=== PATIENT | male | born 1945 | race Caucasian/White ===

== ENCOUNTER 2019-02-19 10:57 | Inpatient (IN) | payer MEDICARE ==
[~2019-02-19] VITALS: Ht 182.9 cm; Wt 90.7 kg
[2019-02-19 11:00] VITALS: BP 124/58
[2019-02-19 11:10] LABS: ABSOLUTE LYMPHOCYTES 1.8 thou/uL (0.8-5.3); ABSOLUTE MONOCYTES 1.9 thou/uL (0.0-1.2); ABSOLUTE NEUTROPHILS 10.6 thou/uL (1.6-8.1); BASOPHILS 0.2 %; EOSINOPHILS 0.3 %; HEMATOCRIT 40.5 % (42.0-52.0); HEMOGLOBIN 13.5 gm/dL (14.0-18.0); LYMPHOCYTES 12.2 %; MCH 32.1 pg (26.0-34.0); MCHC 33.4 g/dL (28.0-37.0); MCV 96.1 fL (80.0-100.0); MONOCYTES 13.3 %; MPV 8.6 fl. (7.2-11.1); NUCLEATED RBCS 0 /100WBC; PLATELET COUNT* 245 thou/uL (150-400); RBC 4.21 mil/uL (4.50-6.00); RDW-CV 13.8 % (10.5-14.5); WBC 14.4 thou/uL (4.0-11.0)
[2019-02-19 11:15] LABS: ANION GAP 8 mmol/L (7-16); BUN 25 mg/dL (7-18); CALCIUM 8.5 mg/dL (8.5-10.1); CHLORIDE 97 mmol/L (98-107); CO2 26 mmol/L (21-32); CREATININE 2.1 mg/dL (0.6-1.3); GLUCOSE 153 mg/dL (70-99); POTASSIUM 4.7 mmol/L (3.5-5.1); SODIUM 131 mmol/L (136-145)
[2019-02-19] MEDS ORDERED: BP MEDICATION (11:18)
[2019-02-19] MEDS ORDERED: METFORMIN HCL500 MG PO (11:18)
[2019-02-19] MEDS ORDERED: LEVEMIR SUBQ (11:18)
[2019-02-19] MEDS ORDERED: LIPITOR 40 MG T40 M1 PO (11:18)
[2019-02-19 11:21] LABS: APTT 29.6 Seconds (25.0-31.3); INR 1.1; PROTIME 10.8 Seconds (9.20-11.50)
[2019-02-19 11:31] LABS: ALBUMIN 3.1 g/dL (3.4-5.0); ALKALINE PHOSPHATASE 77 U/L (46-116); CK-MB MASS 0.7 ng/mL (<0.5-3.6); NT-PRO BRAIN NAT PEPTIDE 445 pg/mL (<300); SGOT 9 U/L (15-37); SGPT 18 U/L (30-65); TOTAL BILIRUBIN 0.8 mg/dL (<0.1-1.0); TOTAL PROTEIN 7.2 g/dL (6.4-8.2); TROPONIN-I LEVEL <0.06 ng/mL (<0.06)
[2019-02-19 13:32] LABS: URINE BILIRUBIN NEGATIVE (Negative); URINE BLOOD NEGATIVE (Negative); URINE CLARITY CLEAR; URINE COLOR YELLOW; URINE GLUCOSE-RANDOM 1+ (Negative); URINE KETONES NEGATIVE (Negative); URINE LEUKOCYTES-REFLEX NEGATIVE (Negative); URINE NITRITE-REFLEX NEGATIVE (Negative); URINE PROTEIN 1+ (Negative); URINE SPECIFIC GRAVITY 1.025 (1.005-1.030); URINE UROBILINOGEN 0.2 E.U./dl (0.2-1.0)
[2019-02-19 16:21] VITALS: BP 119/63
[2019-02-19] MEDS ORDERED: VITAMIN B122500 MCG PO (18:47)
[2019-02-19] MEDS ORDERED: VITAMIN C250 MG PO (18:47)
[2019-02-19] MEDS ORDERED: PROBIOTIC1 EAC1 PO (18:48)
[2019-02-19] MEDS ORDERED: OMEGA 3 1,0001 EACH PO (18:48)
[2019-02-19 20:00] VITALS: BP 121/98
[2019-02-20] VITALS: BP 104/57
[2019-02-20 04:00] VITALS: BP 108/61
[2019-02-20 04:54] LABS: HEMATOCRIT 35.7 % (42.0-52.0); HEMOGLOBIN 11.7 gm/dL (14.0-18.0); MCHC 32.9 g/dL (28.0-37.0); MCV 97.4 fL (80.0-100.0); MPV 8.6 fl. (7.2-11.1); RBC 3.66 mil/uL (4.50-6.00); RDW-CV 13.9 % (10.5-14.5); WBC 10.4 thou/uL (4.0-11.0)
[2019-02-20 05:26] LABS: ALBUMIN 2.3 g/dL (3.4-5.0); CALCIUM 7.8 mg/dL (8.5-10.1); CREATININE 1.8 mg/dL (0.6-1.3); MAGNESIUM 1.7 mg/dL (1.8-2.4); POTASSIUM 5.4 mmol/L (3.5-5.1); TOTAL BILIRUBIN 0.5 mg/dL (<0.1-1.0); TOTAL PROTEIN 5.8 g/dL (6.4-8.2)
--- NOTE | 2019-02-20 05:36 | NUR ---
ASSUMED CARE OF PT AFTER REPORT AT 1930. PT A&OX4. FORGETFUL AT TIMES. VSS. PHYSICAL ASSESSMENT COMPLETED AND CHARTED. PT ON RA. PT TRACING SR/VPACED ON TELE. PT UPSTANDBY TO RESTROOM. DENIES ANY PAIN OR DISCOMFORT. INSTRUCTED ON NPO POST MIDNIGHT ORDERED. COMMUNICATES UNDERSTANDING. PT ABLE TO SLEEP WELL ON BED. CALL LIGHT WITHIN REACH.
--- NOTE | 2019-02-20 07:38 | EKG ---
[place] [address] ELECTROCARDIOGRAM REPORT Name: MATT HA Room: [address] ADM IN .R.#: [id number] Admission: 02/19/19 Attend Phys: Malissa Lehman MD Discharge: Date of : 47 Report #: [id number] THIS REPORT FOR: //name// [facility] ED Test Date: 2019-02-19 Test Time: 11:17:48 Pat Name: MATT HA Department: Room: [facility] Gender: M Supervisor [employer]: : 1945 Requested By: Hany Carlson Order Number: [id number] MD: Jovon Arora Measurements Intervals [place] Rate: 60 P: 31 MA: 141 QRS: 56 QRSD: 90 T: 45 QT: 412 QTc: 412 Interpretive Statements Sinus rhythm No previous ECG available for comparison Electronically Signed On 02-20-2019 7:38:35 CDT by Jovon Arora [email or web address] <ELECTRONICALLY SIGNED> By: Jovon Arora MD, [facility] 02/20/19 0738 [id number] Jovon Arora MD, FACC /EPI
[2019-02-20 08:00] VITALS: BP 123/61
[2019-02-20 16:00] VITALS: BP 149/66
--- NOTE | 2019-02-20 18:18 | NUR ---
KAMALJITNET RESTING IN BED. VITAL SIGNS STABLE. TELEMETRY STOPPED REGINA IS NOW MED SURG. CYSTOSCOPY PERFORMEED TODAY WITH LAZER REMOVAL OF STONES AND PLACEMENT OF URETER STENT. PAITNET NOW VOIDING YELOOW/RED CLEAR URINE. VOIDING WITHOUT DIFFICULTY. NO RESIDUAL NOTED ON LAST 2 VOIDS. PATIENT UP AD BEATRIZ WITH STEADY GAIT. EXPECTED DISCHARGE TOMORROW TO SELF CAR AT HOME. HOURLY ROUNDING COMPLETED FOR REGINA SAFETY.
--- NOTE | 2019-02-20 18:58 | NUR ---
PATIENT TRANSFERRED FROM [facility] TO ROOM 105. NO COMPLAINTS AT THIS TIME. LOTS OF FAMILY AT BEDSIDE. IVF INFUSING. CALL LIGHT WITHIN REACH, WILL CONTINUE TO MONITOR.
[2019-02-20 20:00] VITALS: BP 148/58
[2019-02-21 04:19] LABS: HEMATOCRIT 35.2 % (42.0-52.0); HEMOGLOBIN 11.5 gm/dL (14.0-18.0); MCH 31.8 pg (26.0-34.0); MCHC 32.8 g/dL (28.0-37.0); RBC 3.63 mil/uL (4.50-6.00); RDW-CV 13.8 % (10.5-14.5); WBC 9.4 thou/uL (4.0-11.0)
[2019-02-21 04:35] LABS: CREATININE 1.7 mg/dL (0.6-1.3); POTASSIUM 5.3 mmol/L (3.5-5.1)
--- NOTE | 2019-02-21 05:09 | NUR ---
PATIENT SLEPT WELL DURING THIS SHIFT. PT UP TO BATHROOM WITH STEADY GAIT. PT WITH FLUIDS INFUSING PER DR ORDER. PT WITH 2100 BLOOD SUGAR OF 248; HUMALOG 4 UNITS GIVEN. PT DENIES PAIN/NAUSEA. FREQUENTLY USED ITEMS AND CALL LIGHT WITHIN REACH. SIDERAILS UPX2. WILL CONTINUE TO MONITOR.
[2019-02-21 07:54] VITALS: BP 148/65
[2019-02-21 10:25] LABS: CALCIUM 8.1 mg/dL (8.5-10.1); CREATININE 1.6 mg/dL (0.6-1.3); POTASSIUM 4.4 mmol/L (3.5-5.1)
--- NOTE | 2019-02-21 14:32 | NUR ---
PT.RESTING IN BED. AT BEDSIDE. HE SAID HE IS INDEPENDENT AT HOME. DOES NOT USE ANY DME. HE SHARES CHORES WITHHIS . HE DOES NOT FEEL HE WILL HAVE ANY DISCHARGE NEEDS. CM TO BE AVAILABLE IF NEEDED.
[2019-02-21 16:00] VITALS: BP 138/80
--- NOTE | 2019-02-21 17:52 | NUR ---
PT A&Ox4. VITALS STABLE. IV PATENT, INFUSING. UP AD BEATRIZ. BM TODAY. IN ROOM. DENIED PAIN. CALL LIGHT WITHIN REACH. WILL CONTINUE TO MONITOR.
[2019-02-21 22:00] VITALS: BP 152/67
--- NOTE | 2019-02-22 06:29 | NUR ---
PATIENT HAS SLEPT WELL THROUGHOUT THE NIGHT. VSS ON RA. NO C/O PAIN. PATIENT STATES THAT HE IS URINATING WITHOUT ANY ISSUES. ABDOMEN APPEARS FIRM AND DISTENDED. BOWEL SOUNDS ARE HYPOACTIVE. IV IN RIGHT FOREARM-NS @ 100ML/HR. PATIENT INSTRUCTED TO USE CALL LIGHT WHEN NEEDING ASSISTANCE. HOURLY ROUNDS MADE. WILL CONTINUE WITH PLAN OF CARE AND NURSING TO MONITOR.
[2019-02-22] MEDS ORDERED: ASPIR 8181 MG PO (10:00)
[2019-02-22] MEDS ORDERED: SERTRALINE HCL50 MG PO (10:01)
[2019-02-22] MEDS ORDERED: PIOGLITAZONE15 MG PO (10:01)
--- NOTE | 2019-02-22 10:40 | NUR ---
PATIENT TRANSFERED TO TELEMETRY UNIT. REPORT CHOLO TO JANICE. BELONGINGS PACKED TO TRANSPORTED BY FAMILY.
[2019-02-22 11:00] VITALS: BP 157/73
[2019-02-22 11:40] LABS: CALCIUM 8.1 mg/dL (8.5-10.1); CREATININE 1.3 mg/dL (0.6-1.3); POTASSIUM 4.6 mmol/L (3.5-5.1)
--- NOTE | 2019-02-22 12:11 | NUR ---
RECIEVED PATIENT LATE IN THE AM AT 1100. PATIENT SOMEWHAT CONFUSED ON ARRIVAL. ORIENTED TO PERSON. REORIENED TO PLACE TIME AND SITUATION. SOME WORD SALAD NOTED. ALSO ASSESSED RIGHT SIDE FACIAL DROOP AND RIGHT LEG DRIFT. DR PIERRE PAGED AND TEXTED. NO RETURN OF CALL AT THIS TIME. PATIENT PLACED ON TELE MONITOR. TELE SHOWS SR. IS IN AT THE BEDSIDE. WILL CONTINUE TO MONITOR NEURO CHANGES. NO C/O PAIN.
[2019-02-22 16:00] VITALS: BP 106/70
[2019-02-22 20:00] VITALS: BP 166/74
[2019-02-23] VITALS: BP 137/67
[2019-02-23 04:00] VITALS: BP 151/77
[2019-02-23 04:38] LABS: HEMATOCRIT 32.3 % (42.0-52.0); HEMOGLOBIN 10.7 gm/dL (14.0-18.0); MCH 32.2 pg (26.0-34.0); MCHC 33.3 g/dL (28.0-37.0); MCV 96.6 fL (80.0-100.0); MPV 9.2 fl. (7.2-11.1); RBC 3.34 mil/uL (4.50-6.00); RDW-CV 13.7 % (10.5-14.5); WBC 9.4 thou/uL (4.0-11.0)
[2019-02-23 05:00] LABS: CALCIUM 8.2 mg/dL (8.5-10.1); CREATININE 1.2 mg/dL (0.6-1.3); POTASSIUM 4.5 mmol/L (3.5-5.1)
--- NOTE | 2019-02-23 05:01 | NUR ---
ASSUMED PT CARE AT APPROX 1930. PT IS AWAKE AND ORIENTED X4. VSS ON ROOM AIR. NO DESATURATIONS NOTED. ASSESSMENT DONE AND CHARTED. DANCING MASTER IN PLACE, TRACING SR, PACER IS PACING NEEDED. PT DENIES PAIN OF THE MOMENT. ABDOMINAL IS SOFTER BUT STILL A LITTLE DISTENDED, ACTIVE BOWEL SOUNDS NOTED. PT DENIES NAUSEA/VOMITING. PT IS ABLE TO SLEEP MOST OF THE NIGHT. CALL LIGHT WITHIN REACH. HOURLY ROUNDING DONE FOR PT SAFETY. FALL PRECAUTIONS IN PLACE.
--- NOTE | 2019-02-23 07:15 | NUR ---
CHNAGE OF SHIFT BEDSIDE REPORT GIVEN PATIENT SEEN AT BEDSIDE, IN BED WATCHING TV ASSUMED PATIENT CARE
[2019-02-23 08:00] VITALS: BP 108/72
--- NOTE | 2019-02-23 11:24 | NUR ---
Spoke with , anticipate that Pt will be medically stable to dc to home tomorrow, no needs anticipated.
--- NOTE | 2019-02-23 11:56 | OP ---
[address] [address] OPERATIVE REPORT Name: MATT HA Room: [address] IN M.R.#: [id number] Admission: 02/19/19 Attend Phys: Malissa Lehman MD Discharge: Date of : 47 Report #: [id number] THIS REPORT FOR: //name// CC: Malissa Black DATE OF SERVICE: 02/20/2019 PREOPERATIVE DIAGNOSIS: Left proximal ureteral calculus. POSTOPERATIVE DIAGNOSIS: Left proximal ureteral calculus. PROCEDURES PERFORMED: 1. Cystoscopy with left retrograde pyelogram. 2. Left ureteroscopy with laser lithotripsy. 3. Basket stone extraction. 4. Left 4.8 x 28 double-J ureteral stent placement. SURGEON: Margarito Dunn MD ANESTHESIA: General endotracheal. BRIEF HISTORY: The patient is a 73-year-old male who presented to [facility] Emergency Room with left-sided flank pain. CT imaging demonstrated the presence of a 6 mm left proximal ureteral calculus with associated hydronephrosis. After discussion of available management options, the patient elected to proceed with cystoscopy, left retrograde pyelogram, left ureteroscopy with laser lithotripsy, stone retrieval, and stent placement. The risks of the procedure including the risks of bleeding, infection, damage to surrounding structures, need for additional procedures, and anesthetic risks were discussed with the patient and he wished to proceed. PROCEDURE IN DETAIL: The risks and benefits of surgery were discussed with the patient and he wished to proceed. Informed consent was obtained and the patient was transferred to the operating room where he was laid supine on the operating room table. After the induction of adequate general endotracheal anesthesia, his legs were placed in a modified dorsal lithotomy position, taking care to pad all pressure points and avoid any hyperextension or hyperflexion of his joints. The patient had previously received empiric antibiotics. His genitalia were then prepped and draped in the usual sterile fashion. A timeout was then performed to ensure correct patient and procedure. At this time, a 22-[place] cystoscope sheath with a 30-degree lens was lubricated and advanced under direct vision and irrigation into the anterior urethra. There were no anterior urethral abnormalities identified. As the prostatic urethra was approached, there was noted to be moderate lateral lobe enlargement without significant visual obstruction. There was mild median lobe enlargement. [place] [address] OPERATIVE REPORT Name: MATT HA Room: [address]#: [id number] Admission: 02/19/19 Attend Phys: Malissa Lehman MD Discharge: Date of : 47 Report #: [id number] advanced into the bladder where it was disarticulated and the bladder was drained. Cystoscopy was performed under direct vision and irrigation with both 30-degree and 70 degree lens. The patient's bladder wall was mildly trabeculated, but there were no papillary tumors or suspicious mucosal lesions identified. At this time, a 5-[place] Pollack catheter was placed into the patient's left ureteral orifice and a left retrograde pyelogram was performed. Contrast could be seen filling the distal, mid, and proximal left ureter up to a radiopaque filling defect consistent with the stone previously observed on CT imaging. Contrast did progress beyond the stone and filled a mildly dilated left collecting system. At this time, a 0.038 ZIPwire was advanced into the left ureter and up into the kidney under fluoroscopic guidance. The wire was clamped to the drape as a safety wire. A second ZIPwire was advanced alongside the first under fluoroscopic guidance until it was also seen to coil within the left collecting system under fluoroscopy. At this time, the inner cannula of an 05/03 navigator access sheath was obtained and was advanced by itself over the working wire under fluoroscopic guidance. There was resistance met at the ureteral orifice with attempts at advancing just the inner cannula alone. As such that was removed. A flexible ureteroscope was then advanced over the wire under direct and fluoroscopic vision into the ureter. The ureteroscope was able to be advanced to the patient's calculus. The stone moved in a retrograde fashion into the kidney where it settled in a mid pole sharon. The ureteroscope was advanced to the stone. There was a fair amount of debris within the left kidney, which did limit visibility somewhat. A 200 micron laser fiber was advanced through the ureteroscope and laser lithotripsy was performed on the stone. The majority of the stone was able to be dusted nicely. Eventually, a few larger fragments were generated. These were further broken down with laser lithotripsy until small enough for passage alongside the stent. There were two remaining fragments, which were 2 mm or so. One was grasped with a 0 tip nitinol basket and removed. The working wire was replaced with a 10-[place] dual-lumen catheter under fluoroscopic guidance. The ureteroscope was readvanced to the kidney and the second of the two larger fragments was grasped and removed with a 0 tip nitinol basket as well. The working wire was replaced with a dual-lumen catheter, and the ureteroscope was readvanced to the kidney. Renoscopy was performed one final time. There was dust and tiny fragments remaining, all amenable to passage alongside a ureteral stent. As such, the ureteroscope was withdrawn from the UPJ towards the UVJ. Prior to withdrawing the ureteroscope entirely, a left retrograde pyelogram was performed by injecting the contrast through the scope. This demonstrated patency and integrity of the ureter and collecting system and delineated the collecting system for stent placement. There were no stone fragments within the ureter. The ureteroscope was removed. A 4.8 x 28 double-J ureteral stent was then advanced over the safety wire and into position using a metal-tipped pusher. The wire was withdrawn, deploying the stent. A good coil of the stent was identified within the patient's left upper pole sharon under fluoroscopy and a good coil of the stent was identified within the bladder under direct vision with the cystoscope. The cystoscope was disarticulated [place] [address] OPERATIVE REPORT Name: MATT HA Room: [address]#: [id number] Admission: 02/19/19 Attend Phys: Malissa Lehman MD Discharge: Date of : 47 Report #: [id number] drained. The cystoscope was removed, and the patient's urethra was anesthetized with 2% lidocaine jelly. A B and O suppository was placed per rectum. The patient was returned to a supine position, awakened from anesthesia, and transferred to the postoperative care unit in stable condition. The patient tolerated the procedure well. COMPLICATIONS: None. ESTIMATED BLOOD LOSS: None. IV FLUIDS: Crystalloid. DRAINS: Left 4.8 x 28 double-J ureteral stent. SPECIMENS: 1. Urine for culture and sensitivity. 2. Left renal calculus fragments. FINDINGS: 1. Normal anterior urethra. 2. Moderate bilobar prostatic hyperplasia without significant visual obstruction. 3. Mild bladder wall trabeculations without additional gross bladder wall pathology. No papillary bladder tumors or suspicious mucosal lesions identified. 4. Left retrograde pyelogram demonstrating a radiopaque filling defect of the left proximal ureter consistent with the stone seen on prior CT imaging. 5. Left ureteroscopy demonstrating a left proximal ureteral calculus, fragmented with laser lithotripsy. 6. Left 4.8 x 28 double-J ureteral stent in good position by fluoroscopy and direct vision at the conclusion of the procedure. <ELECTRONICALLY SIGNED> By: Margarito Dunn MD 02/23/19 1156 [id number] Dunn MD /nt
[2019-02-23 20:30] VITALS: BP 141/68
--- NOTE | 2019-02-23 22:43 | NUR ---
ASSUMED PT CARE AT THIS TIME, ASSESSMENT CHARTED BY PREVIOUS RN. PT RESTING IN BED WITH STABLE VITALS.
[2019-02-24] VITALS: BP 146/66
[2019-02-24 04:00] VITALS: BP 156/71
[2019-02-24 05:12] LABS: HEMATOCRIT 33.3 % (42.0-52.0); HEMOGLOBIN 11.2 gm/dL (14.0-18.0); MCH 32.1 pg (26.0-34.0); MCHC 33.6 g/dL (28.0-37.0); MCV 95.5 fL (80.0-100.0); MPV 9.2 fl. (7.2-11.1); RBC 3.48 mil/uL (4.50-6.00); RDW-CV 13.4 % (10.5-14.5); WBC 9.2 thou/uL (4.0-11.0)
[2019-02-24 05:35] LABS: ALBUMIN 2.3 g/dL (3.4-5.0); CALCIUM 8.4 mg/dL (8.5-10.1); CREATININE 1.3 mg/dL (0.6-1.3); MAGNESIUM 1.3 mg/dL (1.8-2.4); POTASSIUM 4.3 mmol/L (3.5-5.1); TOTAL BILIRUBIN 0.4 mg/dL (<0.1-1.0)
[2019-02-24 08:00] VITALS: BP 146/82
[2019-02-24] MEDS ORDERED: CIPRO500 MG PO (09:57)
--- NOTE | 2019-02-24 09:57 | NUR ---
ASSUMED CARE OF PATIENT THIS AM AT 0730. PATIENT IS ALERT AND ORIENTED X 4. HE DENIES PAIN AND DISCOMFORT. TELE SHOWS SR TO SB. HE IS TAKING HIS DIET WELL. DR IN TO ROUND AND DISCHARGE ORDERS WRITTEN. PATIENT TO RECIEVE AN ADDITIONAL DOSE OF PO MAGNESIUM AND DISCHARGE TO HOME.
[2019-02-24 12:21] VITALS: BP 146/82
[2019-02-24 12:24] VITALS: BP 146/82
== END 2019-02-24 14:20 | disposition home or self-care (01) | DRG 853 ==
LOC: M.ERS 10:57 → M.ORTHSURG 13:26 → M.TBA-ER 13:26 → M.2W 13:26 → M.ORTHSURG 02-20 18:57 → M.2W 02-22 11:02
PROVIDERS: Family Medicine; Nurse Practitioner Adult Health; Urology; ADMIT Internal Medicine
PROC: 0TC78ZZ Extirpation of Matter from Left Ureter, Via Natural or Artificial Opening Endoscopic (ICD-10-PCS; principal; 2019-02-20)
PROC: BT1F1ZZ Fluoroscopy of Left Kidney, Ureter and Bladder using Low Osmolar Contrast (ICD-10-PCS; principal; 2019-02-20)
PROC: 0T778DZ Dilation of Left Ureter with Intraluminal Device, Via Natural or Artificial Opening Endoscopic (ICD-10-PCS; principal; 2019-02-20)
DX: A41.9 Sepsis, unspecified organism (principal); N17.0 Acute kidney failure with tubular necrosis; N12 Tubulo-interstitial nephritis, not specified as acute or chronic; E11.9 Type 2 diabetes mellitus without complications; F41.9 Anxiety disorder, unspecified; I10 Essential (primary) hypertension; R14.0 Abdominal distension (gaseous); Z88.8 Allergy status to other drugs, medicaments and biological substances; Z95.0 Presence of cardiac pacemaker; Z90.49 Acquired absence of other specified parts of digestive tract; Z79.899 Other long term (current) drug therapy